=== PATIENT | female | born 1975 | race Caucasian/White ===

== ENCOUNTER 2023-07-08 12:48 | Day surgery (SDC) | payer OTHER ==
[2023-07-07 12:45] VITALS: BMI 28.3
[~2023-07-08 12:48] MED LIST: CEFAZOLIN 1 GM in DEXTROSE 5%-WATER - 50 ML IVPB ONE
[2023-07-08] MEDS ORDERED: PROPOFOL 40 ML ONE (13:26)
[2023-07-08] MEDS ORDERED: ONDANSETRON 4 MG/2 ML VIAL ONE (13:26)
[2023-07-08] MEDS ORDERED: MIDAZOLAM HCL 2 MG/2 ML SINGLE DOSE VIAL ONE (13:26)
[2023-07-08] MEDS ORDERED: ceFAZolin SODIUM 1 GM VIAL ONE (13:26)
[2023-07-08] MEDS ORDERED: DEXAMETHASONE SOD PHOSPHATE 4 MG/1 ML VIAL ONE ×2 (13:26→14:25)
[2023-07-08] MEDS ORDERED: LIDOCAINE HCL/PF 2% SDV 5ML VIAL ONE (13:26)
[2023-07-08] MEDS ORDERED: BUPIVACAINE HCL/PF 0.25% (2.5MG/ML) 10 ML VIAL ONE (14:07)
[2023-07-08] MEDS ORDERED: LIDOCAINE HCL 2% (20ML MULTI-DOSE VIAL) ONE (14:08)
[2023-07-08] MEDS ORDERED: BUPIVACAINE HCL/PF 0.5% (5MG/ML) 10 ML VIAL ONE (14:08)
[2023-07-08] MEDS ORDERED: LIDOCAINE HCL 1%, 10 MG/ML (20ML VIAL) ONE (14:08)
[2023-07-08] MEDS ORDERED: DEXAMETHASONE SOD PHOSPHATE/PF 10 MG/ML SDV ONE (14:25)
[2023-07-08] MEDS ORDERED: PROPOFOL 20 ML ONE (14:47)
[2023-07-08] MEDS ORDERED: ONDANSETRON 4 MG/2 ML VIAL IVPUSH PRN (15:16)
[2023-07-08 15:25] VITALS: TEMP 97.8
[2023-07-08] MEDS ORDERED: LACTATED RINGERS SOLUTION 1,000 ML IV SCH (15:30)
[2023-07-08 16:03] VITALS: RESP 18
[2023-07-08 16:13] VITALS: BP 105/62; PULSE 72
== END 2023-07-08 16:52 | disposition home or self-care (01) ==
LOC: FASU 12:48
PROVIDERS: ATTEND Podiatrist
PROC: 0QP104Z Removal of Internal Fixation Device from Sacrum, Open Approach (ICD-10-PCS; principal; 2023-07-08 14:45)
DX: T84.223D Displacement of internal fixation device of bones of foot and toes, subsequent encounter (principal); Y79.1 Therapeutic (nonsurgical) and rehabilitative orthopedic devices associated with adverse incidents
CPT/HCPCS: 81025; 94760